=== PATIENT | female | born 1985 | race Caucasian/White ===

== ENCOUNTER 2019-12-01 15:32 | Emergency (ER) | payer MEDICAID, OTHER ==
[~2019-12-01] VITALS: Ht 157.5 cm; Wt 73.0 kg
[2019-12-01] MEDS ORDERED: ACETAMINOPHEN 325MG TABLET PO PRN (16:00)
[2019-12-01 16:02] LABS: CLARITY URINE CLEAR (CLEAR); COLOR URINE YELLOW (YELLOW); KETONES URINE NEGATIVE (NEGATIVE); LEUKOCYTE ESTERASE URINE NEGATIVE (NEGATIVE); NITRITE URINE NEGATIVE (NEGATIVE); OCCULT BLOOD URINE NEGATIVE (NEGATIVE); PROTEIN URINE NEGATIVE (NEGATIVE); SPECIFIC GRAVITY URINE 1.025 (1.005-1.030); UROBILINOGEN URINE 0.2 E.U./dL (0.2-1.0)
[2019-12-01 16:24] LABS: EOSINOPHILS % 0.4 % (0.0-5.0); HEMATOCRIT. 36.4 % (36.0-48.0); HEMOGLOBIN. 12.6 g/dL (12.0-16.0); LYMPHOCYTES % 13.6 % (20.0-50.0); MEAN CORPUSCULAR HEMOGLOBIN 27.8 pg (28.0-32.0); MEAN CORPUSCULAR VOLUME 80.1 fL (81.0-99.0); MEAN PLATELET VOLUME 9.6 fl (7.4-10.4); MONOCYTES % 6.1 % (2.0-8.0); NEUTROPHILS % 79.9 % (40.0-76.0); PLATELET 222 x1000/uL (130-400); RED BLOOD CELL COUNT 4.55 mill/uL (4.2-5.4); RED CELL DISTRIBUTION WIDTH 13.4 % (11.6-14.6)
[2019-12-01 16:31] LABS: CHLORIDE 107 mEq/L (98-107)
[2019-12-01 16:53] LABS: B-HCG QUANTITATIVE 24309 mIU/mL (<3)
[2019-12-01 18:41] VITALS: BP 129/72
== END 2019-12-01 18:43 | disposition home or self-care (01) ==
LOC: ER 15:32
DX: O26.892 Other specified pregnancy related conditions, second trimester (principal); R10.0 Acute abdomen; O99.282 Endocrine, nutritional and metabolic diseases complicating pregnancy, second trimester; E05.90 Thyrotoxicosis, unspecified without thyrotoxic crisis or storm; O32.1XX0 Maternal care for breech presentation, not applicable or unspecified; R03.0 Elevated blood-pressure reading, without diagnosis of hypertension; R00.0 Tachycardia, unspecified; Z3A.20 20 weeks gestation of pregnancy
CPT/HCPCS: 36415; 76805; 80053; 81003; 84443; 84702; 85025; 93005; 99285

== ENCOUNTER 2019-12-26 20:15 | Observation (INO) | payer MEDICAID ==
[~2019-12-26] VITALS: Ht 157.5 cm; Wt 73.5 kg
[2019-12-26] MEDS ORDERED: PREN1TAB78 PO (21:14)
[2019-12-26] MEDS ORDERED: METHIMAZOLE (21:17)
[2019-12-26] MEDS: DEXT 5%/LACTATED RINGERS 1,000 ML IV SCH ×2 (21:24→22:52)
[2019-12-26 22:00] LABS: CLARITY URINE CLOUDY (CLEAR); COLOR URINE YELLOW (YELLOW); KETONES URINE TRACE (NEGATIVE); LEUKOCYTE ESTERASE URINE NEGATIVE (NEGATIVE); NITRITE URINE NEGATIVE (NEGATIVE); OCCULT BLOOD URINE NEGATIVE (NEGATIVE); PH URINE 5.5 (4.5-8.0); PROTEIN URINE TRACE (NEGATIVE); SPECIFIC GRAVITY URINE 1.036 (1.005-1.030)
[2019-12-26 22:08] LABS: T4 FREE 2.71 ng/dL (0.76-1.46)
[2019-12-26 22:10] LABS: *AMPHETAMINES SCREEN URINE NEGATIVE (NEGATIVE)
[2019-12-26 22:11] LABS: *BARBITURATES SCREEN URINE NEGATIVE (NEGATIVE); *BENZODIAZEPINES SCREEN URINE NEGATIVE (NEGATIVE); *COCAINE SCREEN URINE NEGATIVE (NEGATIVE); METHADONE URINE SCREEN NEGATIVE (NEGATIVE); OPIATES URINE SCREEN NEGATIVE (NEGATIVE); PHENCYCLIDINE URINE SCREEN NEGATIVE (NEGATIVE)
[2019-12-26 22:22] LABS: CANNABINOID URINE SCREEN PRESUMTIVE POSITIVE (NEGATIVE)
[2019-12-26] MEDS ORDERED: METHIMAZOLE 5MG TABLET PO SCH (22:45)
[2020-01-03 15:06] LABS: CANNABINOID CONFIRMATION URINE Positive (.)
== END 2019-12-26 23:15 | disposition home or self-care (01) ==
LOC: 8 EST LDRP 20:15
PROVIDERS: ADMIT Obstetrics & Gynecology; ATTEND Obstetrics & Gynecology
DX: O26.892 Other specified pregnancy related conditions, second trimester (principal); R10.30 Lower abdominal pain, unspecified; R11.0 Nausea; O62.9 Abnormality of forces of labor, unspecified; Z3A.24 24 weeks gestation of pregnancy; Z79.899 Other long term (current) drug therapy
CPT/HCPCS: 36415; 80305; 80349; 81003; 84439; 84443; 96360; 96361; 99281; G0378

== ENCOUNTER 2020-04-01 09:32 | Observation (INO) | payer MEDICAID ==
[~2020-04-01] VITALS: Ht 157.5 cm; Wt 86.6 kg
[~2020-04-01 09:32] MED LIST: METHIMAZOLE; PREN1TAB78 PO
== END 2020-04-01 12:15 | disposition home or self-care (01) ==
LOC: 8 EST LDRP 09:32
PROVIDERS: ADMIT Obstetrics & Gynecology; ATTEND Obstetrics & Gynecology
DX: O26.853 Spotting complicating pregnancy, third trimester (principal); R10.2 Pelvic and perineal pain; Z3A.37 37 weeks gestation of pregnancy
CPT/HCPCS: 59025; 76805; 76818; G0378; 99281

== ENCOUNTER 2024-07-21 10:54 | Emergency (ER) | payer MEDICAID, OTHER ==
[~2024-07-21] VITALS: Ht 170.2 cm; Wt 73.0 kg
[2024-07-21 10:58] VITALS: BP 132/91; PULSE 97; RESP 18; TEMP 98.1; O2SAT 98
== END 2024-07-21 14:52 | disposition left against medical advice (07) ==
LOC: ER 11:08
DX: R51.9 Headache, unspecified (principal); Z53.21 Procedure and treatment not carried out due to patient leaving prior to being seen by health care provider